=== PATIENT | female | born 1960 | race Caucasian/White ===

== ENCOUNTER 2017-11-07 18:11 | Emergency (ER) | payer BC ==
[~2017-11-07] VITALS: Ht 167.6 cm; Wt 105.2 kg
[2017-11-07] MEDS ORDERED: ADDERALL 20 MG20 MG PO (18:26)
[2017-11-07] MEDS ORDERED: METFORMIN HCL500 MG PO (18:26)
[2017-11-07] MEDS ORDERED: NORCO 10-325 T1 EACH PO (18:26)
[2017-11-07] MEDS ORDERED: LIORESAL 10 MG10 MG PO (18:26)
[2017-11-07] MEDS ORDERED: ATIVAN1 MG PO (18:27)
[2017-11-07 18:44] LABS: ABSOLUTE BASOPHILS 0.1 thou/uL (0.0-0.2); ABSOLUTE EOSINOPHILS 0.1 thou/uL (0.0-0.7); ABSOLUTE LYMPHOCYTES 1.9 thou/uL (0.8-5.3); ABSOLUTE MONOCYTES 0.4 thou/uL (0.0-1.2); ABSOLUTE NEUTROPHILS 4.9 thou/uL (1.6-8.1); EOSINOPHILS 1.6 %; HEMATOCRIT 41.6 % (37.0-47.0); HEMOGLOBIN 13.8 gm/dL (12.0-15.0); LYMPHOCYTES 25.4 %; MCH 26.7 pg (26.0-34.0); MCHC 33.2 g/dL (28.0-37.0); MCV 80.3 fL (80.0-100.0); MONOCYTES 5.3 %; MPV 8.7 fl. (7.2-11.1); NUCLEATED RBCS 0 /100WBC; PLATELET COUNT* 242 thou/uL (150-400); POLYS 66.7 %; RBC 5.18 mil/uL (4.20-5.00); RDW-CV 13.7 % (10.5-14.5); WBC 7.4 thou/uL (4.0-11.0)
[2017-11-07 18:52] LABS: CALCIUM 8.6 mg/dL (8.5-10.1); CREATININE 1.1 mg/dL (0.6-1.3); POTASSIUM 3.7 mmol/L (3.5-5.1)
[2017-11-07 18:56] LABS: ALBUMIN 3.5 g/dL (3.4-5.0); TOTAL BILIRUBIN 0.7 mg/dL (<0.1-1.0); TOTAL PROTEIN 7.2 g/dL (6.4-8.2)
[2017-11-07] MEDS ORDERED: PREDNISONE 20 M20 M1 PO (19:14)
[2017-11-07] MEDS ORDERED: PROMETHAZINE-D118 ML PO (19:24)
[2017-11-07 19:35] VITALS: BP 140/69
== END 2017-11-07 19:32 | disposition home or self-care (01) ==
LOC: M.ERS 18:11
PROVIDERS: Nurse Practitioner Family
DX: J20.9 Acute bronchitis, unspecified (principal); M79.7 Fibromyalgia; E11.9 Type 2 diabetes mellitus without complications

== ENCOUNTER → 2019-04-30 | Outpatient (CLI) | payer OTHER ==
[~2019-04-30] MED LIST: ADDERALL 20 MG20 MG PO; ATIVAN1 MG PO; LIORESAL 10 MG10 MG PO; METFORMIN HCL500 MG PO; NORCO 10-325 T1 EACH PO; PREDNISONE 20 M20 M1 PO; PROMETHAZINE-D118 ML PO
[2019-04-30 08:18] LABS: ABSOLUTE EOSINOPHILS 0.1 thou/uL (0.0-0.7); ABSOLUTE LYMPHOCYTES 1.6 thou/uL (0.8-5.3); ABSOLUTE MONOCYTES 0.3 thou/uL (0.0-1.2); ABSOLUTE NEUTROPHILS 2.3 thou/uL (1.6-8.1); BASOPHILS 0.8 %; EOSINOPHILS 1.5 %; HEMATOCRIT 38.3 % (37.0-47.0); LYMPHOCYTES 37.5 %; MCH 27.6 pg (26.0-34.0); MCHC 33.9 g/dL (28.0-37.0); MCV 81.5 fL (80.0-100.0); MONOCYTES 6.1 %; NUCLEATED RBCS 0 /100WBC; PLATELET COUNT* 206 thou/uL (150-400); POLYS 54.1 %; RDW-CV 13.5 % (10.5-14.5); WBC 4.2 thou/uL (4.0-11.0)
[2019-04-30 08:33] LABS: ALBUMIN 3.4 g/dL (3.4-5.0); CALCIUM 8.4 mg/dL (8.5-10.1); CREATININE 0.8 mg/dL (0.6-1.3); POTASSIUM 4.3 mmol/L (3.5-5.1); TOTAL BILIRUBIN 0.7 mg/dL (<0.1-1.0); TOTAL PROTEIN 6.5 g/dL (6.4-8.2)
[2019-04-30 09:28] LABS: ESR (SEDRATE) 9 mm/hr (0-30)
== END ==
LOC: M.LAB 04-24 09:07 → M.MRI 07:16 → M.LAB 08:30
PROVIDERS: Psychiatry & Neurology Neuromuscular Medicine
DX: R41.3 Other amnesia (principal); R51 Headache; F41.9 Anxiety disorder, unspecified

== ENCOUNTER 2019-09-15 00:01 | Emergency (ER) | payer OTHER ==
[~2019-09-15] VITALS: Ht 170.2 cm; Wt 54.4 kg
[2019-09-15] MEDS ORDERED: OLANZAPINE10 M1 PO (00:16)
[2019-09-15] MEDS ORDERED: LOPERAMIDE 2 MG2 M1 PO (00:16)
[2019-09-15] MEDS ORDERED: COLACE100 MG PO (00:17)
[2019-09-15] MEDS ORDERED: ZOFRAN8 MG PO (00:17)
[2019-09-15] MEDS ORDERED: MIRALAX119 GM PO (00:17)
[2019-09-15] MEDS ORDERED: COMPAZINE10 M2 PO (00:18)
[2019-09-15] MEDS ORDERED: DEXAMETHASONE 44 M1 PO (00:19)
[2019-09-15 01:02] LABS: MPV 9.7 fl. (7.2-11.1); WBC 4.9 thou/uL (4.0-11.0)
[2019-09-15 01:05] LABS: URINE BILIRUBIN NEGATIVE (Negative); URINE BLOOD NEGATIVE (Negative); URINE CLARITY CLEAR; URINE COLOR YELLOW; URINE GLUCOSE-RANDOM NEGATIVE (Negative); URINE KETONES NEGATIVE (Negative); URINE LEUKOCYTES-REFLEX TRACE (Negative); URINE NITRITE-REFLEX NEGATIVE (Negative); URINE PROTEIN NEGATIVE (Negative); URINE SPECIFIC GRAVITY 1.025 (1.005-1.030); URINE UROBILINOGEN 0.2 E.U./dl (0.2-1.0)
[2019-09-15 01:07] LABS: HEMOGLOBIN 10.4 gm/dL (12.0-15.0); PROTIME 10.7 Seconds (9.20-11.50); RBC 3.76 mil/uL (4.20-5.00)
[2019-09-15 01:09] LABS: HEMATOCRIT 30.6 % (37.0-47.0); MCH 27.7 pg (26.0-34.0); MCV 81.5 fL (80.0-100.0); NUCLEATED RBCS 0 /100WBC; PLATELET COUNT* 152 thou/uL (150-400); RDW-CV 14.9 % (10.5-14.5)
[2019-09-15 01:16] LABS: CALCIUM 7.9 mg/dL (8.5-10.1); POTASSIUM 3.5 mmol/L (3.5-5.1)
[2019-09-15 01:20] LABS: ALBUMIN 2.9 g/dL (3.4-5.0); MAGNESIUM 1.6 mg/dL (1.8-2.4); TOTAL BILIRUBIN 0.3 mg/dL (<0.1-1.0); TOTAL PROTEIN 5.8 g/dL (6.4-8.2)
[2019-09-15 01:28] LABS: CASTS None Seen /LPF (None Seen); SQUAMOUS >10 Many /LPF (0-3)
[2019-09-15 01:29] LABS: BACTERIA-REFLEX 1-9 Few /HPF (None Seen); CRYSTALS None Seen /LPF (None Seen); URINE RBC None Seen /HPF (0-2); URINE WBC-REFLEX 6-15 Few /HPF (0-5)
[2019-09-15] MEDS ORDERED: TAXOTERE20 MG/1 ML (01:37)
[2019-09-15] MEDS ORDERED: CYTOXAN (01:38)
[2019-09-15 01:56] LABS: ABSOLUTE EOSINOPHILS 0.1 thou/uL (0.0-0.7); ABSOLUTE LYMPHOCYTES 1.4 thou/uL (0.8-5.3); ABSOLUTE MONOCYTES 0.5 thou/uL (0.0-1.2); ABSOLUTE NEUTROPHILS 2.8 thou/uL (1.6-8.1)
[2019-09-15 01:57] LABS: PLATELET ESTIMATE DECREASED
[2019-09-15] MEDS ORDERED: KETOCONAZOLE15 GM TOP (03:04)
[2019-09-15 03:20] VITALS: BP 115/39
== END 2019-09-15 03:20 | disposition home or self-care (01) ==
LOC: M.ERS 00:01
PROVIDERS: Emergency Medicine
DX: K80.80 Other cholelithiasis without obstruction (principal); L30.8 Other specified dermatitis; B37.9 Candidiasis, unspecified; M79.7 Fibromyalgia; E11.9 Type 2 diabetes mellitus without complications; J44.9 Chronic obstructive pulmonary disease, unspecified; Z85.3 Personal history of malignant neoplasm of breast; Z90.10 Acquired absence of unspecified breast and nipple

== ENCOUNTER 2020-05-20 19:55 | Emergency (ER) | payer OTHER ==
[~2020-05-20] VITALS: Ht 170.2 cm; Wt 77.1 kg
[~2020-05-20 19:55] MED LIST changes: +COLACE100 MG PO; +COMPAZINE10 M2 PO; +CYTOXAN; +DEXAMETHASONE 44 M1 PO; +KETOCONAZOLE15 GM TOP; +LOPERAMIDE 2 MG2 M1 PO; +MIRALAX119 GM PO; +OLANZAPINE10 M1 PO; +TAXOTERE20 MG/1 ML; +ZOFRAN8 MG PO
[2020-05-20] MEDS ORDERED: ARIMIDEX1 MG PO (20:16)
[2020-05-20] MEDS ORDERED: KISQALI1 EAC1 PO (20:16)
[2020-05-20 20:44] LABS: ABSOLUTE LYMPHOCYTES 1.4 thou/uL (0.8-5.3); ABSOLUTE MONOCYTES 0.2 thou/uL (0.0-1.2); ABSOLUTE NEUTROPHILS 2.1 thou/uL (1.6-8.1); BASOPHILS 1.1 %; EOSINOPHILS 1.1 %; HEMATOCRIT 37.5 % (37.0-47.0); HEMOGLOBIN 12.9 gm/dL (12.0-15.0); LYMPHOCYTES 36.6 %; MCH 30.8 pg (26.0-34.0); MCHC 34.4 g/dL (28.0-37.0); MCV 89.5 fL (80.0-100.0); MONOCYTES 5.8 %; MPV 7.6 fl. (7.2-11.1); NUCLEATED RBCS 0 /100WBC; PLATELET COUNT* 243 thou/uL (150-400); POLYS 55.4 %; RBC 4.19 mil/uL (4.20-5.00); WBC 3.8 thou/uL (4.0-11.0)
[2020-05-20 20:52] LABS: CALCIUM 8.5 mg/dL (8.5-10.1); CREATININE 1.1 mg/dL (0.6-1.3); POTASSIUM 3.9 mmol/L (3.5-5.1)
[2020-05-20 20:56] LABS: ALBUMIN 3.4 g/dL (3.4-5.0); MAGNESIUM 1.9 mg/dL (1.8-2.4); TOTAL BILIRUBIN 0.4 mg/dL (<0.1-1.0); TOTAL PROTEIN 6.5 g/dL (6.4-8.2)
[2020-05-20 21:14] LABS: INFLUENZA A ANTIGEN Negative (Negative); INFLUENZA B ANTIGEN Negative (Negative)
[2020-05-20 23:51] VITALS: BP 98/48
--- NOTE | 2020-05-21 12:51 | EKG ---
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: : 1960 Requested By: Laisha Foote Order Number: [id number] MD: Howard Oliver Measurements Intervals [place] Rate: 92 P: 74 [place]: 159 QRS: 66 QRSD: 81 T: 43 QT: 354 QTc: 438 Interpretive Statements Sinus rhythm Probable left atrial enlargement Baseline wander in lead(s) V6 No previous ECG available for comparison Electronically Signed On 05-21-2020 12:50:54 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
== END 2020-05-20 23:52 | disposition home or self-care (01) ==
LOC: M.ERS 19:55
PROVIDERS: Emergency Medicine
DX: R51.9 Headache, unspecified (principal); Z20.828 Contact with and (suspected) exposure to other viral communicable diseases; M79.7 Fibromyalgia; E11.9 Type 2 diabetes mellitus without complications; J44.9 Chronic obstructive pulmonary disease, unspecified; Z85.3 Personal history of malignant neoplasm of breast; Z90.13 Acquired absence of bilateral breasts and nipples

== ENCOUNTER 2020-06-15 12:06 | Emergency (ER) | payer OTHER ==
[~2020-06-15] VITALS: Ht 167.6 cm; Wt 77.1 kg
[~2020-06-15 12:06] MED LIST changes: +ARIMIDEX1 MG PO; +KISQALI1 EAC1 PO
[2020-06-15 12:48] LABS: HEMATOCRIT 42.5 % (37.0-47.0); HEMOGLOBIN 14.3 gm/dL (12.0-15.0); MCH 30.5 pg (26.0-34.0); MCHC 33.7 g/dL (28.0-37.0); MCV 90.5 fL (80.0-100.0); MPV 8.2 fl. (7.2-11.1); NUCLEATED RBCS 0 /100WBC; PLATELET COUNT* 145 thou/uL (150-400); RDW-CV 14.7 % (10.5-14.5)
[2020-06-15] MEDS ORDERED: FLEXERIL PO (12:49)
[2020-06-15 12:52] LABS: WBC 1.9 thou/uL (4.0-11.0)
[2020-06-15 13:03] LABS: CALCIUM 8.9 mg/dL (8.5-10.1); POTASSIUM 4.2 mmol/L (3.5-5.1)
[2020-06-15 13:05] LABS: APTT 25.1 Seconds (25.0-31.3); PROTIME 10.2 Seconds (9.20-11.50)
[2020-06-15 13:15] LABS: ALBUMIN 3.7 g/dL (3.4-5.0); CK-MB MASS 0.7 ng/mL (<0.5-3.6); TOTAL BILIRUBIN 0.4 mg/dL (<0.1-1.0); TOTAL PROTEIN 7.3 g/dL (6.4-8.2)
[2020-06-15 13:31] LABS: ABSOLUTE LYMPHOCYTES 0.9 thou/uL (0.8-5.3); ABSOLUTE MONOCYTES 0.1 thou/uL (0.0-1.2); ABSOLUTE NEUTROPHILS 0.9 thou/uL (1.6-8.1); PLATELET ESTIMATE ADEQUATE
[2020-06-15] MEDS ORDERED: PREDNISONE 20 M20 MG PO (14:44)
[2020-06-15] MEDS ORDERED: VENTOLIN HFA 1818 GM INH (14:44)
[2020-06-15] MEDS ORDERED: ZPAK PO (14:44)
[2020-06-15 14:50] VITALS: BP 125/70
--- NOTE | 2020-06-16 14:25 | EKG ---
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
== END 2020-06-15 14:50 | disposition home or self-care (01) ==
LOC: M.ERS 12:06
PROVIDERS: Family Medicine
DX: U07.1 COVID-19 (principal); D72.819 Decreased white blood cell count, unspecified; E11.9 Type 2 diabetes mellitus without complications; J44.9 Chronic obstructive pulmonary disease, unspecified; Z79.899 Other long term (current) drug therapy

== ENCOUNTER 2020-12-14 15:06 | Emergency (ER) | payer OTHER ==
[~2020-12-14] VITALS: Ht 167.6 cm; Wt 81.7 kg
[~2020-12-14 15:06] MED LIST changes: +FLEXERIL PO; +PREDNISONE 20 M20 MG PO; +VENTOLIN HFA 1818 GM INH; +ZPAK PO
[2020-12-14 15:11] VITALS: BP 138/70
[2020-12-14] MEDS ORDERED: ARIMIDEX1 MG PO ×3 (15:15→22:32)
[2020-12-15] MEDS ORDERED: CLEOCIN HCL300 MG PO (04:29)
== END 2020-12-14 16:12 | disposition home or self-care (01) ==
LOC: M.ERS 15:06
DX: N89.8 Other specified noninflammatory disorders of vagina (principal); Z53.21 Procedure and treatment not carried out due to patient leaving prior to being seen by health care provider

== ENCOUNTER 2020-12-14 22:15 | Emergency (ER) | payer OTHER ==
[~2020-12-14] VITALS: Ht 167.6 cm; Wt 83.9 kg
[2020-12-14] MEDS ORDERED: ARIMIDEX1 MG PO (22:32)
[2020-12-15 01:15] LABS: ABSOLUTE BASOPHILS 0.1 thou/uL (0.0-0.2); ABSOLUTE EOSINOPHILS 0.1 thou/uL (0.0-0.7); ABSOLUTE LYMPHOCYTES 1.8 thou/uL (0.8-5.3); ABSOLUTE MONOCYTES 0.5 thou/uL (0.0-1.2); ABSOLUTE NEUTROPHILS 3.3 thou/uL (1.6-8.1); BASOPHILS 1.3 %; HEMATOCRIT 35.6 % (37.0-47.0); HEMOGLOBIN 12.5 gm/dL (12.0-15.0); LYMPHOCYTES 30.5 %; MCH 30.7 pg (26.0-34.0); MCHC 35.2 g/dL (28.0-37.0); MCV 87.2 fL (80.0-100.0); MONOCYTES 8.9 %; NUCLEATED RBCS 0 /100WBC; PLATELET COUNT* 232 thou/uL (150-400); POLYS 57.3 %; RBC 4.08 mil/uL (4.20-5.00); RDW-CV 14.3 % (10.5-14.5); WBC 5.8 thou/uL (4.0-11.0)
[2020-12-15 01:23] LABS: URINE BILIRUBIN NEGATIVE (Negative); URINE BLOOD 3+ (Negative); URINE CLARITY SL CLOUDY; URINE COLOR YELLOW; URINE GLUCOSE-RANDOM NEGATIVE (Negative); URINE KETONES NEGATIVE (Negative); URINE NITRITE-REFLEX NEGATIVE (Negative); URINE PROTEIN NEGATIVE (Negative); URINE SPECIFIC GRAVITY 1.015 (1.005-1.030); URINE UROBILINOGEN 0.2 E.U./dl (0.2-1.0)
[2020-12-15 01:26] LABS: URINE LEUKOCYTES-REFLEX 3+ (Negative)
[2020-12-15 01:29] LABS: CALCIUM 8.8 mg/dL (8.5-10.1); CREATININE 0.8 mg/dL (0.6-1.3); POTASSIUM 3.7 mmol/L (3.5-5.1)
[2020-12-15 01:34] LABS: ALBUMIN 3.6 g/dL (3.4-5.0); TOTAL BILIRUBIN 0.6 mg/dL (<0.1-1.0); TOTAL PROTEIN 6.6 g/dL (6.4-8.2)
[2020-12-15 01:53] LABS: CASTS None Seen /LPF (None Seen); SQUAMOUS 4-10 Moderate /LPF (0-3)
[2020-12-15 01:55] LABS: BACTERIA-REFLEX 1-9 Few /HPF (None Seen); CRYSTALS None Seen /LPF (None Seen); URINE RBC 3-10 Few /HPF (0-2); URINE WBC-REFLEX >25 Many /HPF (0-5)
[2020-12-15] MEDS ORDERED: CLEOCIN HCL300 MG PO (04:29)
[2020-12-15 04:42] VITALS: BP 120/48
== END 2020-12-15 04:42 | disposition home or self-care (01) ==
LOC: M.ERS 22:15
PROVIDERS: Emergency Medicine
DX: N89.8 Other specified noninflammatory disorders of vagina (principal); E11.9 Type 2 diabetes mellitus without complications; J44.9 Chronic obstructive pulmonary disease, unspecified; Z85.3 Personal history of malignant neoplasm of breast; Z79.899 Other long term (current) drug therapy